=== PATIENT | female | born 1990 | race Hispanic/Latino ===

== ENCOUNTER 2019-01-14 22:20 | Inpatient (IN) | payer OTHER, SELFPAY ==
[2019-01-14] MEDS ORDERED: Ibuprofen 800 MG TAB PO PRN (22:43)
[2019-01-14] MEDS ORDERED: hydrALAZINE 20 MG/ML VIAL SLOW IVP PRN (22:43)
[2019-01-14] MEDS ORDERED: Acetaminophen 500 MG TAB PO PRN (22:43)
[2019-01-14] MEDS ORDERED: Lidocaine 1% (PF) 30 ML VIAL SC PRN (22:43)
[2019-01-14] MEDS ORDERED: Ondansetron PF 4 MG/2 ML Vial IVP PRN (22:43)
[2019-01-14] MEDS ORDERED: Promethazine HCl 25 MG/ML VIAL IM PRN (22:43)
--- NOTE | 2019-01-14 22:51 | PDOC.FPROB ---
FMR OB H&P: HPI - History of Present Illness Chief Complaint: Leaking of fluid Indentification: 28 year old at 36.1 wks History of Present Illness: 28 year old at 36.1 wks by 9 wk sono presents with SROM at 21:30. Patient states fluid was first maroon colored and then became clear. She also noted a green tinge to fluid at one point in time. Patient denies vaginal bleeding, contractions. She endorses good movement. Patient has history of A2GDM. She has been on metformin BID. She reports good control of BG with FBG 80-90's and 2h PP BG 100-120's. She reports good compliance with medication. Primary Care Physician: TIM Marcum FMR OB H&P: Current - Care : 2 Para: 1001 Gestational age: 36.1 wks Due date: 02/10/2019 Dating Criteria: 9.1 wk sono - OB Labs Blood type: O RH: positive Antibody Screen: negative HIV: negative RPR: negative HepBsAg: negative Rubella: immune 1 hour gtt: 176 3 hour GTT: 94, 161, 168, 144 GBS: unknown FMR OB H&P: History - Past Medical History PMH: Insignificant - OB History OB History: IOL at 36 wks for preE with severe features - [employer] History [employer] History: Denies history of STI's or abnormal Pap smears - Surgical History Sx History: Denies - Social History Social History: Denies tobacco, alcohol, or drug use - Family History Family History: DM, T21, Heart disease FMR OB H&P: Medications - Current Home Medications: Medication Instructions Recorded Confirmed Type metFORMIN [Glucophage] 1 mg PO BID 01/14/19 01/14/19 History Allergies/Adverse Reactions: Allergies Allergy/AdvReac Type Severity Reaction Status Date / Time ibuprofen Allergy Severe Emesis Verified 01/14/19 22:54 FMR OB H&P: ROS - Review of Systems General: denies: fever/chills, weight/appetite/sleep changes Eyes: denies: vision changes, double vision, scotomas ENT: denies: nasal congestion, rhinorrhea, sore throat Cardiovascular: denies: chest pain, palpitation, edema Respiratory: denies: cough, congestion, shortness of breath Gastrointestinal: denies: abdominal pain, nausea, vomiting, diarrhea Genitourinary (Female): reports: vaginal discharge. denies: dysuria, vaginal bleeding, contractions Musculoskeletal: denies: pain, stiffness Neurologic: denies: numbness, syncope Integumentary: denies: itching, rash, lesions Hematologic/Lymphatic: denies: prolonged or excessive bleeding Psychological: denies: depression, anxiety FMR OB H&P: Vital Signs - Maternal Vital signs: BP 118/68 Pulse 74 Afebrile - Heart Tones Baseline: 140 Variability: moderate Acceleration: present Deceleration: absent Category: category 1 [place] contractions every: Irregular FMR OB H&P: Physical Exam - Physical Exam General: NAD, awake, alert and oriented HEENT: EOMI, MMM, grossly normal vision, grossly normal hearing Heart: RRR General: no respiratory distress, good air movement Abdomen: soft, gravid, non-tender Musculoskeletal: pulses present, FROM in all four extremities Neurological: no tremor, no focal deficit Skin: no rash, capillary refill <2 seconds Lymphatic: no unusual bruising or bleeding Psychiatric: intact recent and remote memory, good judgement and insight, normal mood and affect FMR OB H&P: A/P - Problem List (1) Premature rupture of membranes Current Visit: Yes Status: Acute Code(s): O42.90 - MARVA ROM, 7TH0 BETW RUPT & ONST LABR, UNSP WEEKS OF GEST (2) Gestational diabetes mellitus (GDM) Current Visit: Yes Status: Acute Code(s): O24.419 - GESTATIONAL DIABETES MELLITUS IN , UNSP CONTROL Disposition: PPROM - SROM at 21:30 with maroon, clear, and green colored non-odorous fluid - Cervical exam /-2 at 22:35, recheck in 2 hours and if no change initiate augmentation - Admit to L&D - Will initiate antibiotics for GBS ppx as status unknown at this time - Betamethasone injection x1, will not delay labor A2GDM - POC glucose, consider further monitoring if elevated - On metformin 500 mg BID - Do not have most recent records from [facility], last clinic visit on 11/25/2018 - Patient reports good control with FBG 80-90's and 2h PP BG 100-120's Hx pre-E with severe features in previous - BP today 118/86 - Monitor BP closely - Patient on ASA during Dispo: Admit to L&D for management of labor. Discussion: Date/Time: 01/14/192246 This H&P was discussed with Dr. Avila who agrees with the above documentation and plan. Signature: Nuria Marcus, DO PGY-3
[2019-01-14] MEDS ORDERED: Penicillin G Potassium 5 MILL.UNITS in Sodium Chloride 0.9% 100 ML IVPB SCH (23:00)
[2019-01-14 23:05] VITALS: BMI 36.8
[2019-01-14] MEDS ORDERED: Betamet Acet/Betamet Na Ph 30 MG/5 ML VIAL IM SCH (23:30)
[2019-01-15] MEDS: Lactated Ringer's 1,000 ML IV SCH ×2 (00:05→08:59)
[2019-01-15 00:11] LABS: Hemoglobin 10.1 g/dL (12.0-16.0); Mean Corpuscular HGB CONC 34.7 g/dL (32.0-36.0); Mean Corpuscular Hemoglobin 28.7 pg (27.0-31.0); Mean Corpuscular Volume 82.8 fL (78.0-98.0); Mean Platelet Volume 8.9 fL (7.4-10.4); Platelet Count 191 thou/uL (130-400); RBC Distribution Width 12.5 % (11.5-14.5); Red Blood Cell (RBC) Count 3.52 mill/uL (4.20-5.40); White Blood Cell (WBC) Count 10.7 thou/uL (4.8-10.8)
[2019-01-15 00:24] LABS: Glucose 100 mg/dL (70-105)
[2019-01-15 00:48] LABS: Hep B Surf Ag Non-Reactive S/CO (NonReactive)
[2019-01-15 00:49] LABS: Syphilis Antibody Nonreactive (Nonreactive); Syphilis Antibody Index 0.03 S/CO (<1.00 Non-Reactive)
[2019-01-15] MEDS ORDERED: Dextrose 50% Abboject 50 ML SYRINGE SLOW IVP PRN (01:58)
[2019-01-15] MEDS ORDERED: HumaLOG 300 UNITS/3 ML VIAL SC PRN (01:58)
[2019-01-15] MEDS ORDERED: Dextrose 5% in Water 1,000 ML IV PRN (01:58)
[2019-01-15] MEDS ORDERED: NS w/ Oxytocin 10 units 500 ML IV SCH (02:00)
[2019-01-15] MEDS: Penicillin G 2.5 MILL.units 2.5 MILL.UNITS in Premix Bag 1 BAG IVPB SCH ×5 (05:13→17:01)
--- NOTE | 2019-01-15 09:11 | PDOC.LDPN ---
Labor & Delivery Progress Note - Subjective Subjective: comfortable, no concerns - Objective Vital signs reviewed and normal: yes (BP 103/66, P 73) General: NAD, resting, breathing through contractions Uterine fundus: non tender SVE: @ [address] Gilliland & RN Laurie Dilation: 6 Effacement: 50% Station: -1 FHT: category 1 (moderate variability, FHR 130s), variability present [place] contractions every: 2-3 min Plan: continue plan of care (Plan to recheck in 2 hrs (about 11:00AM)) -: 1. Term IUP at 36.2 weeks Continue routine peripartum care. Recheck in approx. 2 hours (1100). Continue Pitocin. 2. A2GDM Continue to monitor via Accuchecks. Last accucheck 126. 3. Hx of Preeclampsia Blood pressures in normal limits. Will continue to monitor. Addendum - Attending - Attending Attestation Date/Time: 01/15/19 3270 I evaluated the patient and discussed the management with Dr. Gilliland. I agree with the History, Examination, Assessment and Plan documented above.
--- NOTE | 2019-01-15 11:10 | PDOC.LDPN ---
Labor & Delivery Progress Note - Subjective Subjective: comfortable, no concerns - Objective Vital signs reviewed and normal: yes ((BP 98/52)) General: NAD, resting Uterine fundus: non tender SVE: Laurie (RN) Dilation: 7 Effacement: 75% Station: -1 (or -2) FHT: category 1, variability present [place] contractions every: 4min Plan: continue plan of care, pitocin for augmentation (@ 10 currently. ) -: 1. Term IUP at 36.2 weeks Continue routine peripartum care. Recheck in approx. 2 hours (1300). Continue Pitocin. 2. A2GDM Continue to monitor via Accuchecks. 3. Hx of Preeclampsia Blood pressures in normal limits. Will continue to monitor. Addendum - Attending - Attending Attestation Date/Time: 01/15/19 9953 I personally evaluated the patient and discussed the management with Dr. Cedeno. I agree with the Assessment and Plan documented above.
[2019-01-15] MEDS ORDERED: Bupivacaine/Epinephrine 0.25% 30 ML VIAL ONE (11:11)
--- NOTE | 2019-01-15 13:13 | PDOC.LDPN ---
Labor & Delivery Progress Note - Subjective Subjective: comfortable, painful contractions - Objective Vital signs reviewed and normal: yes ((BP 100s/50s)) General: NAD, resting, breathing through contractions Uterine fundus: non tender SVE: 1300, Elin Cedeno MD. [place] (RN) Dilation: 7 Effacement: 75% Station: -1 FHT: category 1, variability present [place] contractions every: 2-3 minutes Procedures: placed peanut ball and repositioned. - Assessment (1) Premature rupture of membranes Code(s): O42.90 - MARVA ROM, 7TH0 BETW RUPT & ONST LABR, UNSP WEEKS OF GEST Current Visit: Yes Status: Acute Qualifiers: PROM onset of labor timing: onset of labor within 24 hours of rupture PROM gestational age: -third trimester Qualified Code(s): O42.013 - premature rupture of membranes, onset of labor within 24 hours of rupture, third trimester Plan: continue plan of care, pitocin for augmentation -: 1. Term IUP at 36.2 weeks Continue routine peripartum care. Recheck in approx. 2 hours (1300). Continue Pitocin. Continue IV pain management. 2. A2GDM Continue to monitor via Accuchecks. 3. Hx of Preeclampsia Blood pressures in normal limits. Will continue to monitor. 4. IUPC Placed (by Dr. Nadya Gilliland at 1400) for monitoring contractions. Failure to change in last 2 hours. Addendum - Attending - Attending Attestation Date/Time: 01/15/19 3956 I personally evaluated the patient and discussed the management with Dr. Cedeno. Will ploace IUPC to document UCs. I agree with the Assessment and Plan documented above.
[2019-01-15] MEDS: Butorphanol Tartrate 1 MG/ML VIAL SLOW IVP PRN ×2 (13:40→15:34)
--- NOTE | 2019-01-15 16:26 | PDOC.LDPN ---
Labor & Delivery Progress Note - Subjective Subjective: comfortable, painful contractions, vaginal pressure - Objective Vital signs reviewed and normal: yes General: NAD, resting, breathing through contractions Uterine fundus: non tender SVE: @1415, Elin Cedeno & Laurie (RN) Dilation: 7 Effacement: 100% Station: -1 FHT: category 1, early decelerations, variability present [place] contractions every: 2-3minutes AROM: clear fluid IUPC placed: yes (@1400) - Assessment (1) Premature rupture of membranes Code(s): O42.90 - MARVA ROM, 7TH0 BETW RUPT & ONST LABR, UNSP WEEKS OF GEST Current Visit: Yes Status: Acute Qualifiers: PROM onset of labor timing: onset of labor within 24 hours of rupture PROM gestational age: -third trimester Qualified Code(s): O42.013 - premature rupture of membranes, onset of labor within 24 hours of rupture, third trimester Plan: continue plan of care, pitocin for augmentation -: 1. IUP at 36.2 weeks Continue routine peripartum care. Recheck in approx. 2 hours (1300). Continue Pitocin. Continue IV pain management. On ABX for PPROM 2. A2GDM Continue to monitor via Accuchecks. 3. Hx of Preeclampsia Blood pressures in normal limits. Will continue to monitor. 4. IUPC in place 5. AROM of remaining amniotic sac @1615. Clear fluid. Addendum - Attending - Attending Attestation Date/Time: 01/16/19 1612 I personally evaluated the patient and discussed the management with Dr. Cedeno. I agree with the History, Examination, Assessment and Plan documented above.
[2019-01-15] MEDS ORDERED: Fentanyl 4 mcg/Bup 0.1% Cadd 100 ML ONE (16:48)
--- NOTE | 2019-01-15 17:27 | PDOC.LDPN ---
Labor & Delivery Progress Note - Subjective Subjective: painful contractions - Objective Vital signs reviewed and normal: yes General: NAD, breathing through contractions Uterine fundus: non tender SVE: 17:20 Dilation: 8 Effacement: 100% Station: 0 FHT: category 2, variable decelerations, late decelerations [place] contractions every: 2 AROM: clear fluid IUPC placed: yes Resuscitative measures: amniofusion Plan: continue plan of care, labor augmentation, pitocin for augmentation -: 1. IUP at 36.2 weeks -Pt 8/100/0. She is still having deep variables and lates at times. Cat 2 strip. Getting amniofusion and epidural at this time. -Will recheck at 18:30 to reevaluate for change Continue IV pain management. On ABX for PPROM -IUPC in place. -AROM of remaining amniotic sac @1615. Clear fluid 2. A2GDM Continue to monitor via Accuchecks. 3. Hx of Preeclampsia Blood pressures in normal limits. Will continue to monitor. Addendum - Attending - Attending Attestation Date/Time: 01/16/19 8657 I personally evaluated the patient and discussed the management with Dr. Ely. I agree with the History, Examination, Assessment and Plan documented above with any addition or exceptions noted below.
[2019-01-15] MEDS ORDERED: Ondansetron PF 4 MG/2 ML Vial IVP PRN (18:34)
[2019-01-15] MEDS ORDERED: diphenhydrAMINE 50 MG/ML VIAL IVP PRN (18:34)
[2019-01-15] MEDS ORDERED: Naloxone HCl 0.4 mg/ml Vial IVP PRN ×2 (18:34)
[2019-01-15] MEDS ORDERED: Lactated Ringer's 500 ML IV PRN (18:34)
[2019-01-15] MEDS ORDERED: Promethazine HCl 25 MG/ML VIAL IM PRN (18:34)
[2019-01-15] MEDS ORDERED: Acetaminophen 325 MG TAB PO PRN (18:34)
[2019-01-15] MEDS ORDERED: ePHEDrine/0.9% NaCl/PF SYRINGE 50 mg/10 ml SLOW IVP PRN (18:34)
[2019-01-15] MEDS ORDERED: Communication Order-Pharmacy FS SCH (18:45)
[2019-01-15] MEDS ORDERED: Fentanyl 4 mcg/Bupivacaine 0.1% Cassette 100 ML EPIDURAL SCH (18:45)
[2019-01-15] MEDS: NS / Oxytocin 40 units/1000ml 1,000 ML IV PRN ×2 (18:48→21:23)
--- NOTE | 2019-01-15 19:17 | PDOC.OPDEL ---
OB Operative/Delivery Note Delivery Dr/Surgeon: Luke Cedeno Zivney Pre-Delivery Diagnosis: other (PPROM) Procedure/Post Delivery Dx: spontaneous vaginal delivery Weeks gestation: 36 (1 day) Anesthesia: epidural - Findings A Sex: female - 1 min: 8 - 5 min: 9 - Additional Findings/Plan Placenta delivered: spontaneous Repaired Obstetrical Laceration: none Estimated blood loss: QBL 280 Compilations/Other Findings: Delivering Physician: Nuria Payan Attending: Antoinette Procedure: Spontaneous Vaginal Delivery Anesthesia: epidural QBL: 280mL Pre-op Diagnosis: 1. intrauterine in labor, 2. PPROM 3. A2GDM, on metformin Post-op Diagnosis: 1. intrauterine , delivered 2. same as above Indications: A 28y/o female now P0202 presents after loss of fluid. Delivery Note: This is 28yo F @ 36.1 wks who delivered a viable F at 18:42. Following an uneventful intrapartum course, a vigorous female was delivered over an intact perineum in the occipitoanterior position. Anterior Shoulder and then remainder of the body delivered. Nuchal cord x1, manually reduced. The head was held down and mouth and nares were bulb suctioned. After delayed cord clamping the cord was cut and cord blood collected. Placenta delivered intact in the [place] presentation with a 3 vessel cord noted. Fundal massage was performed and the fundus was firm. The cervix and vagina were inspected and found to be free of lacerations. Infant was placed skin to skin. Apgars were 8 / 9 at 1 & 5 minutes, respectively. Patient tolerated delivery well and went to after routine recovery/ care. Post delivery plan: routine recovery Addendum - Attending - Attending Attestation Date/Time: 01/16/19 6308 I personally evaluated the patient and discussed the management with Dr. Borges. Present to attend this uncomplicated . I agree with the Assessment and Plan documented above.
[2019-01-15] MEDS ORDERED: Misoprostol 200 MCG TAB VAG PRN (23:12)
[2019-01-15] MEDS ORDERED: hydrALAZINE 20 MG/ML VIAL SLOW IVP PRN (23:12)
[2019-01-15] MEDS ORDERED: Lanolin Ointment 7 GM TUBE TOP PRN (23:12)
[2019-01-15] MEDS ORDERED: diphenhydrAMINE 25 MG CAP PO PRN (23:12)
[2019-01-15] MEDS ORDERED: Methylergonovine 0.2 MG TAB PO PRN (23:12)
[2019-01-15] MEDS ORDERED: Methylergonovine 0.2 MG/ML VIAL IM PRN (23:12)
[2019-01-15] MEDS ORDERED: Milk Of Magnesia 30 ML UDCUP PO PRN (23:12)
[2019-01-15] MEDS ORDERED: Bisacodyl 10 MG SUPP PR PRN (23:12)
[2019-01-15] MEDS ORDERED: NS / Oxytocin 40 units/1000ml 1,000 ML IV SCH (23:12)
[2019-01-15] MEDS ORDERED: Docusate Calcium (SURFAK) 240 MG CAP PO SCH (23:30)
[2019-01-16] MEDS: Acetaminophen 325 MG TAB PO PRN ×3 (02:29→21:47)
--- NOTE | 2019-01-16 06:48 | PDOC.PP ---
Post Progress Note Post Day #: 1 Subjective: Ms. Bailey is a 28yo now delivered via at 18:42 on 01/15/19 at 36.1 weeks. Labor and delivery was notable for PPROM at 21:30 on 01/14. She was treated with Penicillin G during labor. This morning she denies any new complaints. She is tolerating pain. She has scant lochia. She denies abdominal pain, vaginal pain, chest pain, shortness of breath. Flatus: yes Ambulation: yes Vital Signs (12 hours) Temp Pulse Resp BP Pulse Ox 01/15/19 21:40 98.2 F 77 17 116/59 L 98 01/15/19 21:35 99 Weight Weight 88.451 kg - Physical Examination General: NAD Cardiovascular: no m/r/g, RRR Respiratory: clear to auscultation bilaterally, non-labored breathing Abdominal: + bowel sounds, lochia, no distention, appropriately TTP Neurological: no gross focal deficits Psychiatric: A&Ox3, normal affect Result Diagrams: 01/14/19 23:32 01/14/19 23:33 Additional Labs: Post Labs Blood Type O POSITIVE 01/15/19 01:49 Hep Bs Antigen Non-Reactive S/CO (NonReactive) 01/14/19 23:32 (1) Premature rupture of membranes Code(s): O42.90 - MARVA ROM, 7TH0 BETW RUPT & ONST LABR, UNSP WEEKS OF GEST Status: Acute Qualifiers: PROM onset of labor timing: onset of labor within 24 hours of rupture PROM gestational age: -third trimester Qualified Code(s): O42.013 - premature rupture of membranes, onset of labor within 24 hours of rupture, third trimester - Assessment/Plan 1. delivery. Routine care. * Rubella immune * O+ blood type * She is passing flatus, minimal lochia, tolerating pain well. * Breast and bottle feeding. * Will watch for full 48 hours due to delivery and premature rupture of membranes. 2. A2GDM * On metformin 500 BID, will discontinue on discharge. * Blood glucose has been stable in the 110s.
[2019-01-16] MEDS: Prenatal Vitamin 1 TAB PO SCH (08:59)
[2019-01-16] MEDS ORDERED: Adacel (T-DAP) 0.5 ML SYRINGE IM ONE (09:00)
[2019-01-16] MEDS: Docusate Calcium (SURFAK) 240 MG CAP PO SCH ×2 (09:00→21:28)
[2019-01-16] MEDS: Ferrous Sulfate 325 MG TAB PO SCH ×2 (09:01→17:13)
[2019-01-16] MEDS ORDERED: Simethicone Chewable 80 MG TAB PO PRN (21:37)
--- NOTE | 2019-01-17 06:46 | PDOC.PP ---
Post Progress Note Post Day #: 2 Subjective: Shirley states that she is doing well this morning. She has mild abdominal tenderness and pain with movement, but she states that the pain medications alleviate the pain. She is having scant lochia and has passed gas. She denies dysuria, severe abdominal pain, increased vaginal bleeding, fever, chills, chest pain, or shortness of breath. She is breast and bottle feeding. PO intake tolerated: yes Flatus: yes Ambulation: yes Vital Signs (12 hours) Temp Pulse Resp BP Pulse Ox 01/16/19 20:10 98.3 F 75 20 118/69 99 Weight Weight 88.451 kg - Physical Examination General: NAD Cardiovascular: no m/r/g, RRR Respiratory: clear to auscultation bilaterally, non-labored breathing Abdominal: + bowel sounds, lochia, no distention, appropriately TTP Neurological: no gross focal deficits Psychiatric: A&Ox3, normal affect Result Diagrams: 01/14/19 23:32 01/14/19 23:33 Additional Labs: Post Labs Blood Type O POSITIVE 01/15/19 01:49 Hep Bs Antigen Non-Reactive S/CO (NonReactive) 01/14/19 23:32 (1) Premature rupture of membranes Code(s): O42.90 - MARVA ROM, 7TH0 BETW RUPT & ONST LABR, UNSP WEEKS OF GEST Status: Acute Qualifiers: PROM onset of labor timing: onset of labor within 24 hours of rupture PROM gestational age: -third trimester Qualified Code(s): O42.013 - premature rupture of membranes, onset of labor within 24 hours of rupture, third trimester - Assessment/Plan 1. delivery. Routine care. * Rubella immune * O+ blood type * She is passing flatus, minimal lochia, tolerating pain well. * Breast and bottle feeding. * Will watch for full 48 hours due to delivery and premature rupture of membranes. If baby bili is within range this afternoon, possible discharge at 1800. 2. A2GDM * On metformin 500 BID at home, will discontinue on discharge. * Blood glucose has been stable in the 110s.
--- NOTE | 2019-01-17 07:59 | PDOC.EVN ---
Event Note - Event Note Event Note: Faculty Note: PPD2 Patient care reviewed with oncall resident/Pao. Plan for possible DC home this PM after baby bili returns. Mother is afebrile and doing well.
[2019-01-17 08:35] VITALS: BP 114/74; TEMP 97.8
[2019-01-17] MEDS: Prenatal Vitamin 1 TAB PO SCH (09:42)
[2019-01-17] MEDS: Ferrous Sulfate 325 MG TAB PO SCH (09:42)
[2019-01-17] MEDS: Acetaminophen 325 MG TAB PO PRN (09:46)
[2019-01-17] MEDS: Docusate Calcium (SURFAK) 240 MG CAP PO SCH (09:47)
== END 2019-01-17 17:45 | disposition home or self-care (01) | DRG 805 ==
LOC: L&D/OP 22:20 → L&D 23:38 → 3SW 01-15 21:45
PROVIDERS: ADMIT Obstetrics & Gynecology; ATTEND Obstetrics & Gynecology
PROC: 10E0XZZ Delivery of Products of Conception, External Approach (ICD-10-PCS; principal; 2019-01-15)
DX: O42.013 Preterm premature rupture of membranes, onset of labor within 24 hours of rupture, third trimester (principal); O60.13X0 Preterm labor second trimester with preterm delivery third trimester, not applicable or unspecified; Z37.0 Single live birth; O24.425 Gestational diabetes mellitus in childbirth, controlled by oral hypoglycemic drugs; O69.81X0 Labor and delivery complicated by cord around neck, without compression, not applicable or unspecified; Z3A.36 36 weeks gestation of pregnancy
CPT/HCPCS: 36415; 36416; 51702; 82947; 85027; 86780; 86850; 86900; 86901; 87340; 99285; J0595; J0702; J2001; J2540; J2590; J3490

== ENCOUNTER 2020-05-08 19:21 | Emergency (ER) | payer MEDICAID, SELFPAY ==
[2020-05-08 20:51] LABS: Pregnancy Test - Urine (BHCG) Negative (Negative); Pregu Control Background? CLEAR/WHITE (CLR/WHITE); Pregu Control Bar Appear? YES (CONTROL BAR); Specific Gravity 1.011 (1.002-1.036)
[2020-05-08 20:54] LABS: Bilirubin Negative (Negative); Blood, Urine 2+ (Negative); Clarity Turbid (Clear); Glucose, Urine (Dipstick) Normal (Negative); Ketone, Urine Negative (Negative); Leukocyte 500 Leu/uL (Negative); Nitrite Negative (Negative); Protein, Urine (Dipstick) 30 mg/dL (Neg-Trace); RBC/HPF Greater than 50 HPF (0-3); Renal Epithelial 0-3 HPF (None Seen); Specific Gravity, Urine 1.011 (1.002-1.036); Squamous Epithelial 0-3 HPF (0-3); Urobilinogen Normal mg/dL (Less than 2); WBC/HPF Greater than 50 HPF (0-3); pH, Urine 6.5 (5.0-9.0)
[2020-05-08 20:58] LABS: Bacteria/HPF 1+ HPF (None Seen)
[2020-05-08] MEDS ORDERED: Ketorolac Tromethamine 30 MG/ML VIAL ONE (22:46)
[2020-05-08] MEDS ORDERED: cefTRIAXone\\ROCEPHIN 1 GM VIAL ONE (22:47)
[2020-05-08] MEDS ORDERED: Lidocaine 1% PF 5 ML VIAL ONE (22:48)
[2020-05-08] MEDS ORDERED: Nitrofurantoin Macrocrystal 50 MG CAP PO SCH (23:00)
== END 2020-05-08 23:15 | disposition home or self-care (01) ==
LOC: ERS 19:21
DX: N39.0 Urinary tract infection, site not specified (principal); E11.9 Type 2 diabetes mellitus without complications
CPT/HCPCS: 81003; 81015; 81025; 87086; 96372; 99283; J0696; J1885

== ENCOUNTER 2020-06-03 11:28 | Emergency (ER) | payer SELFPAY ==
[2020-06-03] MEDS ORDERED: Acetaminophen 500 MG TAB ONE ×2 (11:57→12:20)
[2020-06-03] MEDS ORDERED: Ondansetron ODT 4 MG TAB ONE ×3 (11:57→11:59)
[2020-06-03 16:21] LABS: SARS-CoV-2 MS2 Negative; SARS-CoV-2 N Gene Positive; SARS-CoV-2 S Gene Positive; SARS-CoV-2 by NAA DETECTED (NotDetected); SARS-CoV-2 orf1ab Positive
== END 2020-06-03 13:25 | disposition home or self-care (01) ==
LOC: ERS 11:28
DX: U07.1 COVID-19 (principal); J06.9 Acute upper respiratory infection, unspecified; E11.9 Type 2 diabetes mellitus without complications
CPT/HCPCS: 87635; 87804; 99283; Q0162; U0003

== ENCOUNTER 2022-04-04 09:07 | Emergency (ER) | payer OTHER, SELFPAY | END 2022-04-04 12:17 | disposition home or self-care (01) | LOC: ERS 09:07 | DX: S92.321A Displaced fracture of second metatarsal bone, right foot, initial encounter for closed fracture (principal); S92.341A Displaced fracture of fourth metatarsal bone, right foot, initial encounter for closed fracture; S92.351A Displaced fracture of fifth metatarsal bone, right foot, initial encounter for closed fracture; W50.1XXA Accidental kick by another person, initial encounter; Y93.66 Activity, soccer | CPT/HCPCS: 29515 ==